=== PATIENT | male | born 1960 | race Caucasian/White ===

== ENCOUNTER 2017-09-02 08:36 | Day surgery (SDC) | payer OTHER ==
[~2017-09-02] VITALS: Ht 172.7 cm; Wt 94.4 kg
[2017-09-02 08:59] VITALS: BP 137/93; PULSE 67; TEMP 98.4
[2017-09-02] MEDS ORDERED: BYSTOLIC5 MG PO (09:07)
[2017-09-02] MEDS ORDERED: IBU400 MG PO (09:07)
[2017-09-02] MEDS ORDERED: MULTIPLE VITAMI1 CAP PO (09:08)
[2017-09-02 10:00] VITALS: BP 104/78; PULSE 83; TEMP 97.8
[2017-09-02 10:15] VITALS: BP 107/82; PULSE 68
[2017-09-02 10:30] VITALS: BP 116/87; PULSE 60
== END 2017-09-02 10:45 | disposition home or self-care (01) ==
LOC: SDCO 08:36
DX: Z12.11 Encounter for screening for malignant neoplasm of colon (principal); D12.0 Benign neoplasm of cecum
CPT/HCPCS: J2250; J3010; J7030

== ENCOUNTER 2019-12-07 09:14 | Emergency (ER) | payer OTHER ==
[~2019-12-07] VITALS: Ht 172.7 cm; Wt 90.9 kg
[~2019-12-07 09:14] MED LIST: BYSTOLIC5 MG PO; IBU400 MG PO; MULTIPLE VITAMI1 CAP PO
[2019-12-07 09:17] VITALS: TEMP 98.7
[2019-12-07 09:46] LABS: BASO # 0.1 (0.0-0.2); EOS # 0.3 (0.0-0.7); EOS % 4.5 % (0-4.0); GRAN # 3.6 (1.4-6.5); GRAN % 61.5 % (42.2-75.2); LYMPH # 1.3 (1.2-3.4); LYMPH % 21.9 % (20.0-51.0); MEAN CELL VOLUME 92 fl (80.0-100.0); MEAN CORPUSCULAR HEMOGLOBIN 32 pg (27.0-31.0); MEAN CORPUSCULAR HGB CONC 34 g/dl (33.0-37.0); MEAN PLATELET VOLUME 9.5 fl (7.4-10.4); MONO # 0.6 (0.1-0.6); MONO % 10.6 % (1.7-9.3); PLATELET COUNT 233 K/mm3 (130-400); PROTHROMBIN TIME 11.1 SECONDS (9.7-12.8); RED BLOOD COUNT 4.76 M/mm3 (4.20-5.60); REDCELL DISTRIBUTION WIDTH-CV 12.7 % (11.5-14.5)
[2019-12-07 09:49] LABS: PARTIAL THROMBOPLASTIN TIME 30.4 SECONDS (26.0-37.0)
[2019-12-07 09:51] LABS: ALANINE AMINOTRANSFERASE 34 U/L (4-49); ALBUMIN 4.5 gm/dL (3.5-5.0); ALKALINE PHOSPHATASE 41 U/L (50-136); ANION GAP 7 mmol/L (7-16); AST,SGOT 34 U/L (15-37); BILIRUBIN,TOTAL 0.9 mg/dL (0.0-1.0); BLOOD UREA NITROGEN 17 mg/dL (9-20); CALCIUM 9.2 mg/dL (8.4-10.2); CARBON DIOXIDE 28 mmol/L (22-30); CHLORIDE 101 mmol/L (98-107); CREATININE, serum 0.81 (0.66-1.25); GLUCOSE 104 mg/dL (74-106); LIPASE 50 U/L (23-300); MAGNESIUM 2.2 mg/dL (1.6-2.3); POTASSIUM 4.2 mmol/L (3.4-5.0); SODIUM 135 mmol/L (137-145); TOTAL PROTEIN 7.5 gm/dL (6.4-8.2)
[2019-12-07 09:52] LABS: ALCOHOL(ethanol),MEDICAL < 10 mg/dL
[2019-12-07 10:08] LABS: TROPONIN-I < 0.012 ng/mL (0.000-0.035)
[2019-12-07 10:29] VITALS: BP 160/88; PULSE 72
[2019-12-07 10:58] LABS: COLLECTION METHOD CLEAN CATCH
[2019-12-07 11:04] LABS: PH 7 (5-8); SQUAMOUS EPITHELIAL None Seen /hpf; URINE APPEARANCE Clear; URINE BACTERIA None Seen /hpf; URINE BILIRUBIN Negative (NEGATIVE); URINE BLOOD Negative (NEGATIVE); URINE COLOR Straw; URINE GLUCOSE Negative (NEGATIVE); URINE KETONE Negative (NEGATIVE); URINE LEUKOCYTE ESTERASE Negative (NEGATIVE); URINE NITRATE Negative (NEGATIVE); URINE PROTEIN(semi-quant) Negative (NEGATIVE); URINE RBC 0-2 /hpf; URINE UROBILINOGEN Negative (NEGATIVE)
== END 2019-12-07 10:50 | disposition short-term general hospital (02) ==
LOC: COL.ER 09:14
PROVIDERS: Emergency Medicine
DX: I61.9 Nontraumatic intracerebral hemorrhage, unspecified (principal); I10 Essential (primary) hypertension
CPT/HCPCS: J1953; J7030; J7050; Q9967

== ENCOUNTER 2022-03-31 13:02 | Outpatient (RCR) | payer OTHER | END 2022-04-27 | disposition home or self-care (01) | LOC: PT.GENESIS | DX: I63.50 Cerebral infarction due to unspecified occlusion or stenosis of unspecified cerebral artery (principal) ==